=== PATIENT | female | born 1975 | race Two or more races ===

== ENCOUNTER 2024-09-07 09:10 | Day surgery (SDC) | payer MEDICAID ==
[~2024-09-07] VITALS: Ht 170.2 cm; Wt 68.6 kg
[~2024-09-07 09:10] MED LIST: DICY-1 PO; DOCU-412 PO; FAMO20 PO; LIDOCAINE/PF 2% 5 ML VIAL ONE; MAG30ORA11 PO; PROPOFOL 1% 20 ML VIAL IVP ONE; SODIUM CHLORIDE 0.9% 1,000 ML ONE
[2024-09-07] MEDS: SODIUM CHLORIDE 0.9% 1,000 ML IV ONE (13:52)
[2024-09-08] MEDS ORDERED: HYDROGEN PEROXIDE 473 ML SOLUTION TP SCH (09:00)
[2024-09-08] MEDS ORDERED: POVIDONE-IODINE 10% 120 ML SOLUTION TP SCH (09:00)
== END 2024-09-07 13:10 | disposition home or self-care (01) ==
LOC: SURGERY 09:10
PROVIDERS: ATTEND Internal Medicine Gastroenterology
DX: R10.13 Epigastric pain (principal); K29.70 Gastritis, unspecified, without bleeding; Z79.899 Other long term (current) drug therapy
CPT/HCPCS: 43239; 84703; 88305; J2704; J3490; J7030